=== PATIENT | female | born 1965 ===

== ENCOUNTER 2017-06-20 12:51 | Emergency (ER) | payer SELFPAY ==
[2017-06-20 13:09] VITALS: BP 170/88
[2017-06-20 14:27] LABS: Bilirubin,Urine NEG (Negative); Blood,Urine NEG (Negative); Color,Urine Yellow (Yellow); Mucus,Urine 3+ /HPF; Protein,Urine <15 mg/dL mg/dL (Negative); RBC,Urine < 1.0 /HPF (0.0-6.0); Urobilinogen,Urine < 2.0 mg/dL (<2.0)
[2017-06-20] MEDS ORDERED: NORCO 5/325 PO ONE (14:46)
[2017-06-20] MEDS ORDERED: ZOFRAN ODT PO ONE (14:46)
--- NOTE | 2017-06-20 14:52 | Emergency Department Report ---
ED Headache HPI - General Chief Complaint: Headache Stated Complaint: HEADACHE Time Seen by Provider: 06/20/17 14:37 Source: patient - History of Present Illness Initial Comments: Ms. Sanchez presetns wtih 2 weeks of left maxillary/periorbital facial pain and headache. Sinus headache medicine not helping. Patient does not take hypertensive medications. Timing/Duration: other (2 weeks) Quality: moderate Head Injury Location: frontal, other (left periorbital/maxillary) Recent Head Trauma: no recent headache/trauma Modifying Factors: worse with: cold therapy, exposure to light, medication, movement, rest Associated Symptoms: facial pain, nasal congestion. denies: confusion, fatigue , loss of consciousness, nausea/vomiting, nasal drainage, numbness in legs/feet Allergies/Adverse Reactions: Allergies No Known Allergies Allergy (Unverified 03/23/14 10:14) Home Medications: Ambulatory Orders Cyclobenzaprine [Flexeril 10mg] 10 mg PO TID PRN #30 tablet 03/23/14 HYDROcodone/ACETAMINOPHEN [[place] 7.5-325 mg TAB] 1 each PO Q6HR #20 tablet 03/23 Ibuprofen [Motrin] 600 mg PO Q8H PRN #50 tablet 03/23/14 Ibuprofen 800 mg PO QID PRN #20 tablet 06/20/17 Loratadine 10 mg PO DAILY #30 capsule 06/20/17 Sulfamethoxazole/Trimethoprim [Bactrim DS TAB] 1 each PO BID 14 Days #28 tablet 06/20/17 ED Review of Systems ROS: Stated complaint: HEADACHE Other details as noted in HPI Comment: All other systems reviewed and negative Constitutional: denies: chills, fever, malaise Respiratory: denies: cough Cardiovascular: denies: chest pain, palpitations ED Past Medical Hx - Past Medical History Hx Hypertension: Yes Additional medical history: back pain - Surgical History Additional Surgical History: hysterectomy - Social History Smoking Status: Current Every Day Smoker Substance Use Type: None - Medications Home Medications: Home Medications Medication Instructions Recorded Confirmed Last Taken Type Cyclobenzaprine [Flexeril 10mg] 10 mg PO TID PRN #30 tablet 03/23/14 Unknown Rx HYDROcodone/ACETAMINOPHEN [[place] 1 each PO Q6HR #20 tablet 03/23/14 Unknown Rx 7.5-325 mg TAB] Ibuprofen [Motrin] 600 mg PO Q8H PRN #50 tablet 03/23/14 Unknown Rx Ibuprofen 800 mg PO QID PRN #20 tablet 06/20/17 Unknown Rx Loratadine 10 mg PO DAILY #30 capsule 06/20/17 Unknown Rx Sulfamethoxazole/Trimethoprim 1 each PO BID 14 Days #28 tablet 06/20/17 Unknown Rx [Bactrim DS TAB] ED Physical Exam - General Limitations: No Limitations General appearance: alert, in no apparent distress - Head Head exam: Present: atraumatic, normocephalic - Eye Eye exam: Present: normal appearance - ENT ENT exam: Present: mucous membranes moist - Neck Neck exam: Present: normal inspection - Respiratory Respiratory exam: Present: normal lung sounds bilaterally. Absent: respiratory distress - Cardiovascular Cardiovascular Exam: Present: regular rate, normal rhythm. Absent: systolic murmur, diastolic murmur, rubs, gallop - GI/Abdominal GI/Abdominal exam: Present: soft, normal bowel sounds - Extremities Exam Extremities exam: Present: normal inspection - Back Exam Back exam: Present: normal inspection - Neurological Exam Neurological exam: Present: alert, oriented X3, CN II-XII intact. Absent: motor sensory deficit - Psychiatric Psychiatric exam: Present: normal affect, normal mood - Skin Skin exam: Present: warm, dry, intact, normal color. Absent: rash - Other Other exam information: +left maxillary tenderness ED Course Vital Signs 06/20/17 13:02 Temperature 98.6 F Pulse Rate 83 Respiratory 16 Rate Blood Pressure 170/88 O2 Sat by Pulse 100 Oximetry ED Medical Decision Making - Medical Decision Making Ms Sanchez presents with acute sinusitis. Abx indicated for 2 weeks of significant symptoms. Due to elevated BP I have recommended to avoidance of OTC sinus medications. rx: bactrim, loratadine, Ibuprofen Critical care attestation.: If time is entered above; I have spent that time in minutes in the direct care of this critically ill patient, excluding procedure time. ED Disposition Clinical Impression: Acute sinus infection, Hypertension Disposition: - TO HOME OR SELFCARE Is pt being admited?: No Does the pt Need Aspirin: No Condition: Stable Instructions: Hypertension (ED), Acute Bacterial Rhinosinusitis (ED) Prescriptions: Ibuprofen 800 mg PO QID PRN #20 tablet PRN Reason: Pain Loratadine 10 mg PO DAILY #30 capsule Sulfamethoxazole/Trimethoprim [Bactrim DS TAB] 1 each PO BID 14 Days #28 tablet Referrals: [facility] [Outside] - 3-5 Days Time of Disposition: 14:52
== END 2017-06-20 15:04 | disposition home or self-care (01) ==
LOC: ED 12:51
DX: J01.90 Acute sinusitis, unspecified (principal); I10 Essential (primary) hypertension; F17.200 Nicotine dependence, unspecified, uncomplicated; Z90.710 Acquired absence of both cervix and uterus
CPT/HCPCS: 81001; 99283; Q0162